=== PATIENT | female | born 1945 | race Caucasian/White ===

== ENCOUNTER 2021-09-07 09:10 | Emergency (ER) | payer MEDICARE ==
[~2021-09-07] VITALS: Ht 160 cm; Wt 60.4 kg
[2021-09-07] MEDS ORDERED: ketorolac tromethamine 15mg/ml inj. IM ONE (09:25)
--- NOTE | 2021-09-07 09:37 | NUR ---
PATIENT SEEN AND EVALUATED BY PA IN TRIAGE. PATIENT THEN PLACED IN ROOM. TORADOL WAS ADMINISTERED IM. PATIENT WAS THEN TRANSPORTED TO X-RAY FOR RIGHT SCAPULA PICTURE.
[2021-09-07 10:37] VITALS: BP 139/89
== END 2021-09-07 10:39 | disposition home or self-care (01) ==
LOC: ER 09:11
DX: M77.8 Other enthesopathies, not elsewhere classified (principal); Z88.8 Allergy status to other drugs, medicaments and biological substances
CPT/HCPCS: 73030; 96372; 99283; J1885